=== PATIENT | male | born 2000 | race Caucasian/White ===

== ENCOUNTER 2023-06-03 09:55 | Emergency (ER) | payer OTHER ==
[~2023-06-03] VITALS: Ht 162.6 cm; Wt 77.1 kg
[2023-06-03 10:03] VITALS: BP 155/88; PULSE 70; RESP 18; TEMP 98.5; O2SAT 96
[2023-06-03 12:50] VITALS: BP 133/86; PULSE 78; O2SAT 96
== END 2023-06-03 12:50 | disposition home or self-care (01) ==
LOC: MED 09:55
DX: N43.3 Hydrocele, unspecified (principal)
CPT/HCPCS: 76870; 99284; Q0092